=== PATIENT | female | born 2000 | race Caucasian/White ===

== ENCOUNTER 2020-02-28 00:17 | Emergency (ER) | payer OTHER ==
[~2020-02-28] VITALS: Ht 167.6 cm; Wt 65.0 kg
[2020-02-28 01:11] LABS: HEMATOCRIT 38.4 % (36.0-47.0); HEMOGLOBIN 12.8 g/dl (12.0-15.5); MEAN CORPUSCULAR HEMOGLOBIN 29.2 pg (27.0-33.0); MEAN CORPUSCULAR HGB CONC 33.3 g/dl (32.0-36.5); MEAN CORPUSCULAR VOLUME 87.7 fl (80.0-96.0); PLATELET COUNT, AUTOMATED 241 10^3/uL (150-450); RED BLOOD COUNT 4.38 10^6/uL (4.00-5.40)
[2020-02-28 01:36] LABS: AMPHETAMINES LEVEL URINE NEGATIVE (NEGATIVE); BARBITURATES URINE NEGATIVE (NEGATIVE); BENZODIAZEPINES URINE NEGATIVE (NEGATIVE); CANNABINOIDS URINE NEGATIVE (NEGATIVE); COCAINE METABOLITE URINE NEGATIVE (NEGATIVE); METHADONE URINE NEGATIVE (NEGATIVE); OPIATES URINE NEGATIVE (NEGATIVE); PHENCYCLIDINE URINE NEGATIVE (NEGATIVE)
[2020-02-28 01:41] LABS: HCG, SERUM QUALITATIVE NEGATIVE (NEGATIVE)
[2020-02-28 01:50] LABS: ACETAMINOPHEN LEVEL < 2.0 UG/ML (10.0-30.0); ALBUMIN 4.2 GM/DL (3.2-5.2); ALT/SGPT 22 U/L (12-78); BILIRUBIN,DIRECT < 0.1 MG/DL (0.0-0.2); BILIRUBIN,TOTAL 0.3 MG/DL (0.2-1.0); BLOOD UREA NITROGEN 7 MG/DL (7-18); CALCIUM LEVEL 8.6 MG/DL (8.5-10.1); CARBON DIOXIDE LEVEL 26 MEQ/L (21-32); CHLORIDE LEVEL 106 MEQ/L (98-107); CREATININE FOR GFR 0.76 MG/DL (0.55-1.30); ETHYL ALCOHOL (ETHANOL) < 0.003 % (0.000-0.010); GLUCOSE, FASTING 76 MG/DL (70-100); POTASSIUM SERUM 3.5 MEQ/L (3.5-5.1); SALICYLATE LEVEL < 1.7 MG/DL (5.0-30.0); SODIUM LEVEL 139 MEQ/L (136-145); TOTAL PROTEIN 7.6 GM/DL (6.4-8.2)
[2020-02-28 01:57] VITALS: BP 122/67
--- NOTE | 2020-02-29 07:09 | ECGEPIP ---
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
== END 2020-02-28 02:08 | disposition home or self-care (01) ==
LOC: M ED 00:17
DX: F41.8 Other specified anxiety disorders (principal); Z63.0 Problems in relationship with spouse or partner
CPT/HCPCS: 36415; 80048; 80076; 80307; 84443; 84703; 85027; 93005; 99284; G0480

== ENCOUNTER 2020-08-11 08:21 | Emergency (ER) | payer OTHER ==
[~2020-08-11] VITALS: Ht 167.6 cm; Wt 68.3 kg
--- NOTE | 2020-08-11 08:56 | REP ---
INDICATION: pain and difficulty moving since hanging on pullup bar COMPARISON: None. TECHNIQUE: Three views obtained. FINDINGS: Three views of the right shoulder demonstrate no evidence of acute fracture, dislocation, or intrinsic bone disease. IMPRESSION: No fracture or dislocation. <Electronically signed by Vick Cline > 08/11/20 [id number]
[2020-08-11] MEDS ORDERED: CYCLOBENZAPRINE 10MG TABLET PO ONE (09:15)
[2020-08-11] MEDS ORDERED: KETOROLAC 60MG 2ML VIAL IM ONE (09:15)
[2020-08-11 09:50] VITALS: BP 131/75
== END 2020-08-11 10:06 | disposition home or self-care (01) ==
LOC: M ED 08:21
DX: M25.511 Pain in right shoulder (principal); X50.0XXA Overexertion from strenuous movement or load, initial encounter; Y92.9 Unspecified place or not applicable; Y99.1 Military activity; F17.200 Nicotine dependence, unspecified, uncomplicated
CPT/HCPCS: 73030; 96372; 99284; J1885

== ENCOUNTER 2021-07-05 11:13 | Emergency (ER) | payer OTHER ==
[~2021-07-05] VITALS: Ht 167.6 cm; Wt 66.4 kg
[2021-07-05] MEDS ORDERED: NEXP1IMP SC (11:20)
[2021-07-05 12:23] LABS: BASO % 0.3 % (0.0-1.0); EOS # 0.1 10^3/uL (0.0-0.5); HEMATOCRIT 36.3 % (36.0-47.0); HEMOGLOBIN 12.1 g/dl (12.0-15.5); LYMPH # 2.1 10^3/uL (1.5-5.0); LYMPH % 30.5 % (24.0-44.0); MEAN CORPUSCULAR HEMOGLOBIN 29.7 pg (27.0-33.0); MEAN CORPUSCULAR HGB CONC 33.3 g/dl (32.0-36.5); MEAN CORPUSCULAR VOLUME 89.2 fl (80.0-96.0); MONO # 0.7 10^3/uL (0.0-0.8); MONO % 9.8 % (2.0-8.0); NEUTROPHILS # 3.9 10^3/uL (1.5-8.5); NEUTROPHILS % 58.1 % (36.0-66.0); PLATELET COUNT, AUTOMATED 213 10^3/uL (150-450); RED BLOOD COUNT 4.07 10^6/uL (4.00-5.40); WHITE BLOOD COUNT 6.7 10^3/uL (4.0-10.0)
[2021-07-05 13:02] LABS: ALBUMIN 3.6 GM/DL (3.2-5.2); BILIRUBIN,DIRECT 0.1 MG/DL (0.0-0.2); BILIRUBIN,TOTAL 0.5 MG/DL (0.2-1.0); TOTAL PROTEIN 6.5 GM/DL (6.4-8.2)
[2021-07-05] MEDS ORDERED: ONDANSETRON 4MG/2ML VIAL IV ONE (14:15)
[2021-07-05] MEDS ORDERED: KETOROLAC 30 MG/ML 1ML VIAL IV ONE (14:15)
[2021-07-05] MEDS ORDERED: NS 1,000 ML IV ONE (14:15)
[2021-07-05] MEDS: GASTROGRAFIN SOLUTION 30ML PO SCH ×2 (14:59→15:30)
[2021-07-05] MEDS ORDERED: ISOVUE-370 76% 100ML VIAL As Ordered ONE (16:19)
[2021-07-05] MEDS ORDERED: MORPHINE 2 MG/ML 1ML VIAL (J2270) IV ONE (16:50)
--- NOTE | 2021-07-05 16:58 | REP ---
INDICATION: RLQ abd pain, severe. COMPARISON: None. TECHNIQUE: Oral contrast is administered. Helical scanning is acquired following the intravenous injection of 100 mL of Isovue 370. Axial 3 mm slices are re-formatted. Coronal and sagittal MPR images are provided. 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 The lung bases are clear on axial CT images. The liver and the spleen are normal in size homogeneous in texture. No abnormality is noted in the gallbladder or the pancreas. Normal adrenal glands are seen bilaterally. The kidneys enhance symmetrically and are morphologically intact. No retroperitoneal mass or adenopathy is seen. Small bowel loops are well opacified and are unremarkable. The appendix is not confidently identified. However, there is no evidence of inflammatory change adjacent to the cecum in the right lower quadrant. No abnormality is noted in the colon loops. The uterus is normal in in size and appearance. Urinary bladder is well distended and intact. There is a small follicle cyst in the right ovary. 2.5 cm. No adnexal pathology is seen. No abdominal wall defect is observed. No acute bony abnormality. IMPRESSION: Unremarkable CT study of the abdomen and pelvis. Appendix not directly visualized but no inflammatory changes are appreciated. Mildly distended urinary bladder. No acute abdominal or pelvic abnormality seen. <Electronically signed by Reno Gomes > 07/05/21 2005
[2021-07-05 17:49] VITALS: BP 125/75
[2021-07-05] MEDS ORDERED: IBUP80TA PO (18:12)
== END 2021-07-05 18:34 | disposition home or self-care (01) ==
LOC: M ED 11:13
DX: N83.01 Follicular cyst of right ovary (principal); R10.9 Unspecified abdominal pain; R11.0 Nausea; F17.200 Nicotine dependence, unspecified, uncomplicated
CPT/HCPCS: 74177; 80047; 80076; 83690; 84702; 85025; 96374; 96375; 99284; J1885; J2270; J2405; Q9963; Q9967

== ENCOUNTER 2021-07-27 08:11 | Emergency (ER) | payer OTHER ==
[~2021-07-27] VITALS: Ht 167.6 cm; Wt 69.3 kg
[~2021-07-27 08:11] MED LIST: IBUP80TA PO; NEXP1IMP SC
--- OUTSIDE RECORDS SUMMARY | 2021-07-27 08:18 | CCD ---
Author Author [facility] Organization [facility] Address Unknown Phone Unavailable Support Name Relationship Address Phone [facility] Next Of Kin [address] [place] [address] Unavailable Re-disclosure Warning The records that you are about to access may contain information from federally-assisted alcohol or drug abuse programs. If such information is present, then the following federally mandated warning applies: This information has been disclosed to you from records protected by federal confidentiality rules (42 CFR part 2). The federal rules prohibit you from making any further disclosure of this information unless further disclosure is expressly permitted by the written consent of the person to whom it pertains or as otherwise permitted by 42 CFR part 2. A general authorization for the release of medical or other information is NOT sufficient for this purpose. The Federal rules restrict any use of the information to criminally investigate or prosecute any alcohol or drug abuse patient.The records that you are about to access may contain highly sensitive health information, the redisclosure of which is protected by Article 27-F of the [facility] Public Health law. If you continue you may have access to information: Regarding HIV / AIDS; Provided by facilities licensed or operated by the [facility] Office of Mental Health; or Provided by the [facility] Office for People With Developmental Disabilities. If such information is present, then the following [facility] mandated warning applies: This information has been disclosed to you from confidential records which are protected by state law. State law prohibits you from making any further disclosure of this information without the specific written consent of the person to whom it pertains, or as otherwise permitted by law. Any unauthorized further disclosure in violation of state law may result in a fine or half-way sentence or both. A general authorization for the release of medical or other information is NOT sufficient authorization for further disc losure. Immunizations Vaccine Date Status Description Data Source(s) COVID-19 VACCINE Pfizer 03/08/2021 12:00:00 AM EDT completed [facility] Vaccine Series Complete: NOThis Data was Submitted to [facility] Via [employer]. Medications No Information Insurance Providers Payer name Policy type / Coverage type Policy ID Covered constitution party ID Covered constitution party's relationship to pickard Policy Pickard Plan Information [employer] [id number] Problems, Conditions, and Diagnoses No Information Surgeries/Procedures No Information Results No Information Social History No Information
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
--- OUTSIDE RECORDS SUMMARY | 2021-07-27 10:02 | CCD ---
Author Author [facility] Organization [facility] Address Unknown Phone Unavailable Support Name Relationship Address Phone [facility] Next Of Kin [address] [place] [address] Unavailable Re-disclosure Warning The records that you [...] is protected by Article 27-F of the [facility] Public Health law. If you continue you may have access to information: Regarding HIV / AIDS; Provided by facilities licensed or operated by the [facility] Office of Mental Health; or Provided by the [facility] Office for People With Developmental Disabilities. If such information is present, then the following [facility] mandated warning applies: This information has been [...] Series Complete: NOThis Data was Submitted to [facility] Via [employer]. Medications No Information Insurance Providers Payer name Policy type / Coverage type Policy ID Covered libertarian ID Covered libertarian's relationship to pickard Policy Pickard Plan Information [employer] [id number] Problems, Conditions, and Diagnoses No Information Surgeries/Procedures No Information Results No Information Social History No Information
[2021-07-27] MEDS ORDERED: CYCL-707 PO (10:05)
[2021-07-27] MEDS ORDERED: NAPR-837 PO (10:05)
[2021-07-27 10:17] VITALS: BP 107/59
== END 2021-07-27 10:22 | disposition home or self-care (01) ==
LOC: M ED 08:11
DX: S33.5XXA Sprain of ligaments of lumbar spine, initial encounter (principal); V49.40XA Driver injured in collision with unspecified motor vehicles in traffic accident, initial encounter; F17.200 Nicotine dependence, unspecified, uncomplicated; Y92.9 Unspecified place or not applicable; Y93.9 Activity, unspecified; Y99.9 Unspecified external cause status